=== PATIENT | male | born 1965 | race Hispanic/Latino ===

== ENCOUNTER 2018-05-21 18:28 | Emergency (ER) | payer SELFPAY ==
[~2018-05-21] VITALS: Ht 175.3 cm; Wt 97.3 kg
[~2018-05-21 18:28] MED LIST: CEPHALEXIN500 MG OR
[2018-05-21] MEDS ORDERED: LISINOP/HCTZ1 TA2 PO (18:45)
[2018-05-21 19:14] LABS: HEMATOCRIT 48.7 % (39.0-50.0); HEMOGLOBIN 16.9 g/dl (14.0-18.0); IMMATURE GRANULOCYTES 0.4 % (0.0-5.0); MEAN CELL VOLUME 87.7 fL CALC (80.0-100.0); MEAN CORPUSCULAR HGB 30.5 pG CALC (26.0-32.0); MEAN CORPUSCULAR HGB CONC 34.7 g/L CALC (32.0-36.0); NEUT# 9.8 thou/uL (1.82-7.42); RED BLOOD COUNT 5.55 mill/uL (4.70-6.10); RED CELL DISTRI WIDTH 12.9 % (11.5-15.5)
[2018-05-21 19:23] LABS: URINE BILIRUBIN - DIPSTICK NEGATIVE (NEGATIVE); URINE BLOOD DIPSTICK NEGATIVE (NEGATIVE); URINE COLOR YELLOW; URINE GLUCOSE - DIPSTICK NEGATIVE (NEGATIVE); URINE KETONE NEGATIVE (NEGATIVE); URINE LEUK ESTERASE NEGATIVE (NEGATIVE); URINE NITRITE - DIPSTICK NEGATIVE (Negative); URINE PH 6.5 (4.5-8.0); URINE PROTEIN - DIPSTICK NEGATIVE (NEG-TRACE); URINE SPECIFIC GRAVITY <=1.005; URINE UROBILINOGEN - DIPSTICK 0.2 E.U./dL (0.2)
[2018-05-21 19:25] LABS: BARBITURATES NEGATIVE (NEGATIVE); COCAINE NEGATIVE (NEGATIVE); METHADONE NEGATIVE (NEGATIVE); OXCYCODONE NEGATIVE (NEGATIVE); TETRAHYDROCANNABIONOL NEGATIVE (NEGATIVE); TRICYLIC ANTIDEPRESSANTS NEGATIVE (NEGATIVE)
[2018-05-21 20:10] LABS: ALBUMIN 4.7 g/dL (3.2-5.0); ALKALINE PHOSPHATASE 110 u/l (38-126); ANION GAP 17 (6-22 (CALC)); BILIRUBIN, TOTAL 0.8 mg/dL (0.0-1.4); BUN 12 mg/dL (9-20); BUN/CREATININE RATIO 14 (12-20 (CALC)); CARBON DIOXIDE 24 mmol/l (22-30); CHLORIDE 98 mmol/l (95-108); CREATININE 0.9 mg/dL (0.7-1.3); GFR > 60 ML/MIN (>=60 (CALC)); GFR FOR AFR.AMER. > 60 ML/MIN (>=60 (CALC)); POTASSIUM 3.5 mmol/l (3.5-5.1); SGOT/AST 39 u/l (17-59); SODIUM 135 mmol/l (137-146); TOTAL PROTEIN 8.6 g/dL (6.3-8.2)
[2018-05-21 20:22] LABS: MYOGLOBIN 43 ng/mL (0 - 121)
[2018-05-21 21:05] VITALS: BP 138/79
== END 2018-05-21 21:04 | disposition home or self-care (01) | DRG 866 ==
LOC: ED 18:28
DX: B34.9 Viral infection, unspecified (principal); I10 Essential (primary) hypertension

== ENCOUNTER 2018-05-25 17:11 | Observation (INO) | payer SELFPAY ==
[~2018-05-25] VITALS: Ht 175.3 cm; Wt 95.8 kg
[~2018-05-25 17:11] MED LIST changes: +LISINOP/HCTZ1 TA2 PO
[2018-05-25] MEDS ORDERED: RANITIDINE150 M1 PO (17:27)
[2018-05-25 17:46] LABS: HEMATOCRIT 51.6 % (39.0-50.0); HEMOGLOBIN 17.9 g/dl (14.0-18.0); IMMATURE GRANULOCYTES 0.3 % (0.0-5.0); MEAN CELL VOLUME 88.4 fL CALC (80.0-100.0); MEAN CORPUSCULAR HGB 30.7 pG CALC (26.0-32.0); MEAN CORPUSCULAR HGB CONC 34.7 g/L CALC (32.0-36.0); NEUT# 10.94 thou/uL (1.82-7.42); RED BLOOD COUNT 5.84 mill/uL (4.70-6.10); RED CELL DISTRI WIDTH 12.1 % (11.5-15.5)
[2018-05-25 18:20] LABS: ALBUMIN 5.1 g/dL (3.2-5.0); ALKALINE PHOSPHATASE 111 u/l (38-126); ANION GAP 21 (6-22 (CALC)); BUN 14 mg/dL (9-20); BUN/CREATININE RATIO 15 (12-20 (CALC)); CARBON DIOXIDE 23 mmol/l (22-30); CHLORIDE 97 mmol/l (95-108); CREATININE 0.9 mg/dL (0.7-1.3); GFR > 60 ML/MIN (>=60 (CALC)); GFR FOR AFR.AMER. > 60 ML/MIN (>=60 (CALC)); POTASSIUM 4.2 mmol/l (3.5-5.1); SGOT/AST 45 u/l (17-59); SODIUM 136 mmol/l (137-146); TOTAL PROTEIN 9.1 g/dL (6.3-8.2)
[2018-05-25 18:51] LABS: TSH, 3RD GENERATION 2.02 uIU/mL (0.47 - 4.68)
[2018-05-25 21:20] VITALS: BP 129/85
[2018-05-25 23:38] VITALS: BP 125/69
[2018-05-26 04:05] VITALS: BP 118/78
[2018-05-26 05:03] LABS: HEMATOCRIT 45.8 % (39.0-50.0); IMMATURE GRANULOCYTES 0.2 % (0.0-5.0); MEAN CELL VOLUME 88.4 fL CALC (80.0-100.0); MEAN CORPUSCULAR HGB 30.3 pG CALC (26.0-32.0); MEAN CORPUSCULAR HGB CONC 34.3 g/L CALC (32.0-36.0); NEUT# 7.38 thou/uL (1.82-7.42); RED BLOOD COUNT 5.18 mill/uL (4.70-6.10); RED CELL DISTRI WIDTH 12.1 % (11.5-15.5)
[2018-05-26 05:08] LABS: HEMOGLOBIN 15.7 g/dl (14.0-18.0)
[2018-05-26 06:12] LABS: ALKALINE PHOSPHATASE 77 u/l (38-126); ANION GAP 16 (6-22 (CALC)); BILIRUBIN, TOTAL 1.1 mg/dL (0.0-1.4); BUN 11 mg/dL (9-20); BUN/CREATININE RATIO 12 (12-20 (CALC)); CARBON DIOXIDE 23 mmol/l (22-30); CHLORIDE 104 mmol/l (95-108); CREATININE 0.9 mg/dL (0.7-1.3); GFR > 60 ML/MIN (>=60 (CALC)); GFR FOR AFR.AMER. > 60 ML/MIN (>=60 (CALC)); SGOT/AST 27 u/l (17-59); SODIUM 138 mmol/l (137-146); TOTAL PROTEIN 6.9 g/dL (6.3-8.2)
[2018-05-26 08:17] VITALS: BP 124/85
[2018-05-26 09:07] LABS: CHOLESTEROL HDL RATIO 3.3 (<4.4 (CALC))
[2018-05-26 10:41] LABS: URINE BILIRUBIN - DIPSTICK NEGATIVE (NEGATIVE); URINE BLOOD DIPSTICK NEGATIVE (NEGATIVE); URINE COLOR YELLOW; URINE GLUCOSE - DIPSTICK NEGATIVE (NEGATIVE); URINE KETONE NEGATIVE (NEGATIVE); URINE LEUK ESTERASE NEGATIVE (NEGATIVE); URINE NITRITE - DIPSTICK NEGATIVE (Negative); URINE PROTEIN - DIPSTICK NEGATIVE (NEG-TRACE); URINE SPECIFIC GRAVITY <=1.005
[2018-05-26 11:45] VITALS: BP 131/80
[2018-05-26 11:50] VITALS: BP 137/88
[2018-05-26 11:55] VITALS: BP 122/86
[2018-05-26 12:59] VITALS: BP 151/85
[2018-05-26] MEDS ORDERED: COREG3.125 MG PO (14:45)
[2018-05-26] MEDS ORDERED: LISINOPRIL10 M1 PO (14:45)
== END 2018-05-26 15:54 | disposition home or self-care (01) | DRG 312 ==
LOC: ED 17:11 → ED-I 19:56 → ED 20:11 → MS2 20:12
PROVIDERS: Emergency Medicine; Nurse Practitioner Family; ADMIT Internal Medicine Nephrology; ATTEND Internal Medicine Nephrology
DX: R55 Syncope and collapse (principal); E86.0 Dehydration; R94.31 Abnormal electrocardiogram [ECG] [EKG]; K21.9 Gastro-esophageal reflux disease without esophagitis; I10 Essential (primary) hypertension; Z82.49 Family history of ischemic heart disease and other diseases of the circulatory system
CPT/HCPCS: G0378; Q9967

== ENCOUNTER 2018-06-05 19:21 | Emergency (ER) | payer SELFPAY ==
[~2018-06-05] VITALS: Ht 175.3 cm; Wt 110.0 kg
[~2018-06-05 19:21] MED LIST changes: +COREG3.125 MG PO; +LISINOPRIL10 M1 PO; +RANITIDINE150 M1 PO
[2018-06-05] MEDS ORDERED: OMEPRAZOLE10 MG PO (19:53)
[2018-06-05] MEDS ORDERED: BIAXIN500 MG PO (19:53)
[2018-06-05] MEDS ORDERED: AMOXICILLIN500 MG PO (19:55)
[2018-06-05 20:10] LABS: HEMOGLOBIN 16.1 g/dl (14.0-18.0); IMMATURE GRANULOCYTES 0.3 % (0.0-5.0); MEAN CELL VOLUME 86.9 fL CALC (80.0-100.0); MEAN CORPUSCULAR HGB 31.1 pG CALC (26.0-32.0); MEAN CORPUSCULAR HGB CONC 35.8 g/L CALC (32.0-36.0); NEUT# 9.44 thou/uL (1.82-7.42); RED BLOOD COUNT 5.18 mill/uL (4.70-6.10)
[2018-06-05 20:26] LABS: ALBUMIN 4.7 g/dL (3.2-5.0); ALKALINE PHOSPHATASE 91 u/l (38-126); ANION GAP 18 (6-22 (CALC)); BILIRUBIN, TOTAL 0.8 mg/dL (0.0-1.4); BUN 8 mg/dL (9-20); BUN/CREATININE RATIO 11 (12-20 (CALC)); CARBON DIOXIDE 17 mmol/l (22-30); CHLORIDE 107 mmol/l (95-108); CREATININE 0.8 mg/dL (0.7-1.3); GFR > 60 ML/MIN (>=60 (CALC)); GFR FOR AFR.AMER. > 60 ML/MIN (>=60 (CALC)); POTASSIUM 3.5 mmol/l (3.5-5.1); SGOT/AST 30 u/l (17-59); SODIUM 138 mmol/l (137-146); TOTAL PROTEIN 7.8 g/dL (6.3-8.2)
[2018-06-05 20:45] LABS: URINE BILIRUBIN - DIPSTICK NEGATIVE (NEGATIVE); URINE BLOOD DIPSTICK NEGATIVE (NEGATIVE); URINE COLOR YELLOW; URINE GLUCOSE - DIPSTICK NEGATIVE (NEGATIVE); URINE KETONE TRACE mg/dL (NEGATIVE); URINE LEUK ESTERASE NEGATIVE (NEGATIVE); URINE NITRITE - DIPSTICK NEGATIVE (Negative); URINE PROTEIN - DIPSTICK NEGATIVE (NEG-TRACE); URINE UROBILINOGEN - DIPSTICK 0.2 E.U./dL (0.2)
[2018-06-05 20:47] LABS: BARBITURATES NEGATIVE (NEGATIVE); COCAINE NEGATIVE (NEGATIVE); METHADONE NEGATIVE (NEGATIVE); OXCYCODONE NEGATIVE (NEGATIVE); TETRAHYDROCANNABIONOL NEGATIVE (NEGATIVE); TRICYLIC ANTIDEPRESSANTS NEGATIVE (NEGATIVE)
[2018-06-05] MEDS ORDERED: ANTIVERT PO (21:23)
[2018-06-05] MEDS ORDERED: ATIVAN0.5 MG PO (21:23)
[2018-06-05 22:00] VITALS: BP 130/64
[2018-06-13] MEDS ORDERED: CLARITHROMYC500 M1 PO (09:16)
[2018-06-13] MEDS ORDERED: AMOXICILLIN500 MG PO (09:16)
[2018-06-13] MEDS ORDERED: CARVEDILOL3.125 MG PO (09:16)
[2018-06-13] MEDS ORDERED: OMEPRAZOLE20 M1 PO (09:17)
[2018-06-13] MEDS ORDERED: LORAZEPAM0.5 MG PO (09:17)
[2018-06-13] MEDS ORDERED: LISINOPRIL10 MG PO (09:17)
== END 2018-06-05 21:30 | disposition home or self-care (01) | DRG 641 ==
LOC: ED 19:21
PROVIDERS: Emergency Medicine
DX: E86.0 Dehydration (principal); F41.9 Anxiety disorder, unspecified; R06.02 Shortness of breath; R42 Dizziness and giddiness

== ENCOUNTER 2018-06-11 21:58 | Observation (INO) | payer SELFPAY ==
[~2018-06-11] VITALS: Ht 175.3 cm; Wt 92.0 kg
[~2018-06-11 21:58] MED LIST changes: +AMOXICILLIN500 MG PO; +ANTIVERT PO; +ATIVAN0.5 MG PO; +BIAXIN500 MG PO; +OMEPRAZOLE10 MG PO
[2018-06-11 22:50] LABS: HEMATOCRIT 45.9 % (39.0-50.0); HEMOGLOBIN 15.8 g/dl (14.0-18.0); IMMATURE GRANULOCYTES 0.3 % (0.0-5.0); MEAN CELL VOLUME 88.3 fL CALC (80.0-100.0); MEAN CORPUSCULAR HGB 30.4 pG CALC (26.0-32.0); MEAN CORPUSCULAR HGB CONC 34.4 g/L CALC (32.0-36.0); NEUT# 8.08 thou/uL (1.82-7.42); RED BLOOD COUNT 5.2 mill/uL (4.70-6.10); RED CELL DISTRI WIDTH 12.2 % (11.5-15.5)
[2018-06-11 23:16] LABS: ALBUMIN 4.3 g/dL (3.2-5.0); ALKALINE PHOSPHATASE 78 u/l (38-126); ANION GAP 16 (6-22 (CALC)); BILIRUBIN, TOTAL 0.9 mg/dL (0.0-1.4); BUN 8 mg/dL (9-20); BUN/CREATININE RATIO 10 (12-20 (CALC)); CARBON DIOXIDE 20 mmol/l (22-30); CHLORIDE 106 mmol/l (95-108); CREATININE 0.8 mg/dL (0.7-1.3); GFR > 60 ML/MIN (>=60 (CALC)); GFR FOR AFR.AMER. > 60 ML/MIN (>=60 (CALC)); POTASSIUM 3.8 mmol/l (3.5-5.1); SGOT/AST 40 u/l (17-59); SODIUM 139 mmol/l (137-146); TOTAL PROTEIN 7.5 g/dL (6.3-8.2)
[2018-06-11 23:28] LABS: MYOGLOBIN 31 ng/mL (0 - 121)
[2018-06-12] VITALS (7 sets, daily range): BP systolic 126–164; BP diastolic 84–94
[2018-06-13] MEDS ORDERED: CARVEDILOL3.125 MG PO (09:16)
[2018-06-13] MEDS ORDERED: AMOXICILLIN500 MG PO (09:16)
[2018-06-13] MEDS ORDERED: CLARITHROMYC500 M1 PO (09:16)
[2018-06-13] MEDS ORDERED: OMEPRAZOLE20 M1 PO (09:17)
[2018-06-13] MEDS ORDERED: LISINOPRIL10 MG PO (09:17)
[2018-06-13] MEDS ORDERED: LORAZEPAM0.5 MG PO (09:17)
== END 2018-06-12 14:35 | disposition home or self-care (01) | DRG 313 ==
LOC: ED 21:58 → ED-I 23:25 → ED 23:58 → MS2 23:59
PROVIDERS: Emergency Medicine; ADMIT Internal Medicine; ATTEND Internal Medicine
DX: R07.89 Other chest pain (principal); I10 Essential (primary) hypertension
CPT/HCPCS: G0378; J2060

== ENCOUNTER 2018-06-13 20:19 | Emergency (ER) | payer SELFPAY ==
[~2018-06-13] VITALS: Ht 175.3 cm; Wt 92.7 kg
[~2018-06-13 20:19] MED LIST changes: +CARVEDILOL3.125 MG PO; +CLARITHROMYC500 M1 PO; +LISINOPRIL10 MG PO; +LORAZEPAM0.5 MG PO; +OMEPRAZOLE20 M1 PO
[2018-06-13 21:33] LABS: HEMOGLOBIN 15.7 g/dl (14.0-18.0); IMMATURE GRANULOCYTES 0.2 % (0.0-5.0); MEAN CELL VOLUME 87.2 fL CALC (80.0-100.0); MEAN CORPUSCULAR HGB 30.4 pG CALC (26.0-32.0); MEAN CORPUSCULAR HGB CONC 34.9 g/L CALC (32.0-36.0); NEUT# 5.95 thou/uL (1.82-7.42); RED BLOOD COUNT 5.16 mill/uL (4.70-6.10); RED CELL DISTRI WIDTH 12.1 % (11.5-15.5)
[2018-06-13 21:46] LABS: ALBUMIN 4.4 g/dL (3.2-5.0); ALKALINE PHOSPHATASE 78 u/l (38-126); ANION GAP 15 (6-22 (CALC)); BILIRUBIN, TOTAL 0.7 mg/dL (0.0-1.4); BUN 7 mg/dL (9-20); BUN/CREATININE RATIO 10 (12-20 (CALC)); CARBON DIOXIDE 21 mmol/l (22-30); CHLORIDE 106 mmol/l (95-108); CREATININE 0.8 mg/dL (0.7-1.3); GFR > 60 ML/MIN (>=60 (CALC)); GFR FOR AFR.AMER. > 60 ML/MIN (>=60 (CALC)); POTASSIUM 3.4 mmol/l (3.5-5.1); SGOT/AST 34 u/l (17-59); SODIUM 138 mmol/l (137-146); TOTAL PROTEIN 7.7 g/dL (6.3-8.2)
[2018-06-13 21:55] LABS: D-DIMER 0.21 mg/L (0.19-0.60); PROTHROMBIN TIME 10.8 SECONDS (9.0-12.5)
[2018-06-13 21:58] LABS: MYOGLOBIN 25 ng/mL (0 - 121)
[2018-06-13 22:37] VITALS: BP 152/74
== END 2018-06-13 22:34 | disposition home or self-care (01) | DRG 204 ==
LOC: ED 20:19
PROVIDERS: Family Medicine
DX: R06.02 Shortness of breath (principal); I10 Essential (primary) hypertension
CPT/HCPCS: J2060

== ENCOUNTER 2018-06-19 19:36 | Emergency (ER) | payer SELFPAY ==
[~2018-06-19] VITALS: Ht 175.3 cm; Wt 90.0 kg
[2018-06-19 20:46] LABS: HEMATOCRIT 48.4 % (39.0-50.0); HEMOGLOBIN 16.1 g/dl (14.0-18.0); IMMATURE GRANULOCYTES 0.4 % (0.0-5.0); MEAN CORPUSCULAR HGB 30.9 pG CALC (26.0-32.0); MEAN CORPUSCULAR HGB CONC 33.3 g/L CALC (32.0-36.0); NEUT# 4.73 thou/uL (1.82-7.42); RED BLOOD COUNT 5.21 mill/uL (4.70-6.10); RED CELL DISTRI WIDTH 12.3 % (11.5-15.5)
[2018-06-19 20:48] LABS: MEAN CELL VOLUME 92.9 fL CALC (80.0-100.0)
[2018-06-19 21:03] LABS: ALBUMIN 4.5 g/dL (3.2-5.0); ALKALINE PHOSPHATASE 83 u/l (38-126); AMYLASE 108 u/l (30-110); ANION GAP 18 (6-22 (CALC)); BILIRUBIN, TOTAL 0.9 mg/dL (0.0-1.4); BUN 10 mg/dL (9-20); BUN/CREATININE RATIO 10 (12-20 (CALC)); CARBON DIOXIDE 17 mmol/l (22-30); CHLORIDE 108 mmol/l (95-108); GFR > 60 ML/MIN (>=60 (CALC)); GFR FOR AFR.AMER. > 60 ML/MIN (>=60 (CALC)); LIPASE 111 u/l (23-300); POTASSIUM 3.4 mmol/l (3.5-5.1); SGOT/AST 36 u/l (17-59); SODIUM 140 mmol/l (137-146)
[2018-06-19 21:15] LABS: MYOGLOBIN 32 ng/mL (0 - 121)
[2018-06-19] MEDS ORDERED: PREVPAC PO (22:04)
[2018-06-19 23:45] VITALS: BP 129/81
[2018-06-22] MEDS ORDERED: LISINOPRIL10 MG PO ×2 (08:40→13:24)
== END 2018-06-19 23:45 | disposition home or self-care (01) | DRG 392 ==
LOC: ED 19:36
PROVIDERS: Emergency Medicine
DX: R10.13 Epigastric pain (principal); A04.8 Other specified bacterial intestinal infections; I10 Essential (primary) hypertension
CPT/HCPCS: J2060; S0164

== ENCOUNTER 2018-06-22 13:12 | Emergency (ER) | payer SELFPAY ==
[~2018-06-22] VITALS: Ht 175.3 cm; Wt 89.1 kg
[~2018-06-22 13:12] MED LIST changes: +PREVPAC PO
[2018-06-22] MEDS ORDERED: LISINOPRIL10 MG PO (13:24)
[2018-06-22 14:26] LABS: HEMATOCRIT 47.2 % (39.0-50.0); IMMATURE GRANULOCYTES 0.3 % (0.0-5.0); MEAN CELL VOLUME 89.9 fL CALC (80.0-100.0); MEAN CORPUSCULAR HGB 30.5 pG CALC (26.0-32.0); MEAN CORPUSCULAR HGB CONC 33.9 g/L CALC (32.0-36.0); NEUT# 4.93 thou/uL (1.82-7.42); RED BLOOD COUNT 5.25 mill/uL (4.70-6.10); RED CELL DISTRI WIDTH 12.6 % (11.5-15.5)
[2018-06-22 14:51] LABS: BUN 7 mg/dL (9-20); BUN/CREATININE RATIO 7 (12-20 (CALC)); CHLORIDE 107 mmol/l (95-108); CREATININE 0.9 mg/dL (0.7-1.3); GFR > 60 ML/MIN (>=60 (CALC)); GFR FOR AFR.AMER. > 60 ML/MIN (>=60 (CALC)); SODIUM 142 mmol/l (137-146)
[2018-06-22 14:52] LABS: ANION GAP 18 (6-22 (CALC)); CARBON DIOXIDE 22 mmol/l (22-30); POTASSIUM 4.6 mmol/l (3.5-5.1)
[2018-06-22 15:16] VITALS: BP 129/86
[2018-06-26] MEDS ORDERED: MYLANT3 PO (09:42)
[2018-06-26] MEDS ORDERED: LANSOPRAZOLE30 MG PO (10:56)
== END 2018-06-22 15:10 | disposition home or self-care (01) | DRG 313 ==
LOC: ED 13:12
PROVIDERS: Family Medicine
DX: R07.9 Chest pain, unspecified (principal); I10 Essential (primary) hypertension

== ENCOUNTER 2018-07-10 08:41 | Day surgery (SDC) | payer SELFPAY ==
[~2018-07-10] VITALS: Ht 175.3 cm; Wt 88.9 kg
[~2018-07-10 08:41] MED LIST changes: +LANSOPRAZOLE30 MG PO; +MYLANT3 PO
[2018-07-10] MEDS ORDERED: PERCOCET 5/325M1 TAB PO (13:07)
[2018-07-10 14:07] VITALS: BP 112/68
== END 2018-07-10 13:55 | disposition home or self-care (01) | DRG 419 ==
LOC: ORM 08:41
PROVIDERS: ATTEND Surgery
PROC: 0FT44ZZ Resection of Gallbladder, Percutaneous Endoscopic Approach (ICD-10-PCS; principal; 2018-07-10)
DX: K81.1 Chronic cholecystitis (principal); I10 Essential (primary) hypertension
CPT/HCPCS: J0131; J0461; J2710; Q9967

== ENCOUNTER 2018-07-11 02:09 | Emergency (ER) | payer SELFPAY ==
[~2018-07-11] VITALS: Ht 175.3 cm; Wt 87.0 kg
[~2018-07-11 02:09] MED LIST changes: +PERCOCET 5/325M1 TAB PO
[2018-07-11 02:53] LABS: HEMATOCRIT 41.8 % (39.0-50.0); HEMOGLOBIN 14.8 g/dl (14.0-18.0); IMMATURE GRANULOCYTES 0.5 % (0.0-5.0); MEAN CELL VOLUME 87.1 fL CALC (80.0-100.0); MEAN CORPUSCULAR HGB 30.8 pG CALC (26.0-32.0); MEAN CORPUSCULAR HGB CONC 35.4 g/L CALC (32.0-36.0); NEUT# 7.93 thou/uL (1.82-7.42); RED BLOOD COUNT 4.8 mill/uL (4.70-6.10); RED CELL DISTRI WIDTH 12.6 % (11.5-15.5)
[2018-07-11 03:10] LABS: ALBUMIN 4.5 g/dL (3.2-5.0); ALKALINE PHOSPHATASE 83 u/l (38-126); BUN 9 mg/dL (9-20); BUN/CREATININE RATIO 8 (12-20 (CALC)); CARBON DIOXIDE 19 mmol/l (22-30); CHLORIDE 107 mmol/l (95-108); GFR > 60 ML/MIN (>=60 (CALC)); GFR FOR AFR.AMER. > 60 ML/MIN (>=60 (CALC)); SODIUM 138 mmol/l (137-146); TOTAL PROTEIN 7.5 g/dL (6.3-8.2)
[2018-07-11 03:13] LABS: ANION GAP 15 (6-22 (CALC))
[2018-07-11 03:14] LABS: BILIRUBIN, TOTAL 1.7 mg/dL (0.0-1.4); POTASSIUM 3.2 mmol/l (3.5-5.1); SGOT/AST 81 u/l (17-59)
[2018-07-11 03:21] LABS: MYOGLOBIN 82 ng/mL (0 - 121)
[2018-07-11 05:38] VITALS: BP 111/61
[2018-07-12] MEDS ORDERED: TYLENOL 500MG TAB PO (16:06)
[2018-07-12] MEDS ORDERED: XANAX XR1 MG PO (17:16)
== END 2018-07-11 05:40 | disposition home or self-care (01) | DRG 556 ==
LOC: ED 02:09
PROVIDERS: Emergency Medicine
DX: M79.10 Myalgia, unspecified site (principal); T40.2X5A Adverse effect of other opioids, initial encounter; I10 Essential (primary) hypertension

== ENCOUNTER 2018-07-12 14:38 | Emergency (ER) | payer SELFPAY ==
[~2018-07-12] VITALS: Ht 175.3 cm; Wt 85.5 kg
[2018-07-12 15:56] LABS: HEMATOCRIT 42.8 % (39.0-50.0); HEMOGLOBIN 14.8 g/dl (14.0-18.0); IMMATURE GRANULOCYTES 0.3 % (0.0-5.0); MEAN CELL VOLUME 88.6 fL CALC (80.0-100.0); MEAN CORPUSCULAR HGB 30.6 pG CALC (26.0-32.0); MEAN CORPUSCULAR HGB CONC 34.6 g/L CALC (32.0-36.0); NEUT# 4.77 thou/uL (1.82-7.42); RED BLOOD COUNT 4.83 mill/uL (4.70-6.10); RED CELL DISTRI WIDTH 12.9 % (11.5-15.5)
[2018-07-12] MEDS ORDERED: TYLENOL 500MG TAB PO (16:06)
[2018-07-12 16:40] LABS: ALBUMIN 4.3 g/dL (3.2-5.0); ALKALINE PHOSPHATASE 71 u/l (38-126); BUN 8 mg/dL (9-20); BUN/CREATININE RATIO 9 (12-20 (CALC)); CARBON DIOXIDE 19 mmol/l (22-30); CHLORIDE 107 mmol/l (95-108); CREATININE 0.9 mg/dL (0.7-1.3); GFR > 60 ML/MIN (>=60 (CALC)); GFR FOR AFR.AMER. > 60 ML/MIN (>=60 (CALC)); SGOT/AST 47 u/l (17-59); SODIUM 138 mmol/l (137-146); TOTAL PROTEIN 7.3 g/dL (6.3-8.2)
[2018-07-12 16:42] LABS: ANION GAP 16 (6-22 (CALC)); POTASSIUM 3.9 mmol/l (3.5-5.1)
[2018-07-12] MEDS ORDERED: XANAX XR1 MG PO (17:16)
[2018-07-12 17:39] VITALS: BP 126/73
== END 2018-07-12 17:38 | disposition home or self-care (01) | DRG 204 ==
LOC: ED 14:38
PROVIDERS: Emergency Medicine
DX: R06.02 Shortness of breath (principal); R06.4 Hyperventilation; I10 Essential (primary) hypertension

== ENCOUNTER 2018-07-22 20:38 | Emergency (ER) | payer SELFPAY ==
[~2018-07-22] VITALS: Ht 175.3 cm; Wt 88.0 kg
[~2018-07-22 20:38] MED LIST changes: +TYLENOL 500MG TAB PO; +XANAX XR1 MG PO
[2018-07-22 21:27] LABS: HEMOGLOBIN 14.7 g/dl (14.0-18.0); IMMATURE GRANULOCYTES 0.2 % (0.0-5.0); MEAN CELL VOLUME 88.1 fL CALC (80.0-100.0); MEAN CORPUSCULAR HGB 30.8 pG CALC (26.0-32.0); NEUT# 4.36 thou/uL (1.82-7.42); RED BLOOD COUNT 4.77 mill/uL (4.70-6.10); RED CELL DISTRI WIDTH 13.2 % (11.5-15.5)
[2018-07-22 21:55] LABS: MYOGLOBIN 23 ng/mL (0 - 121)
[2018-07-22 22:14] LABS: ALBUMIN 4.3 g/dL (3.2-5.0); ALKALINE PHOSPHATASE 103 u/l (38-126); ANION GAP 18 (6-22 (CALC)); BILIRUBIN, TOTAL 0.7 mg/dL (0.0-1.4); BUN 12 mg/dL (9-20); BUN/CREATININE RATIO 11 (12-20 (CALC)); CARBON DIOXIDE 18 mmol/l (22-30); CHLORIDE 108 mmol/l (95-108); CREATININE 1.1 mg/dL (0.7-1.3); GFR > 60 ML/MIN (>=60 (CALC)); GFR FOR AFR.AMER. > 60 ML/MIN (>=60 (CALC)); POTASSIUM 4.2 mmol/l (3.5-5.1); SGOT/AST 32 u/l (17-59); SODIUM 139 mmol/l (137-146); TOTAL PROTEIN 7.6 g/dL (6.3-8.2)
[2018-07-22 22:33] VITALS: BP 102/61
== END 2018-07-22 22:33 | disposition home or self-care (01) | DRG 149 ==
LOC: ED 20:38
PROVIDERS: Emergency Medicine
DX: R42 Dizziness and giddiness (principal); R06.02 Shortness of breath; R51 Headache; M25.512 Pain in left shoulder; I10 Essential (primary) hypertension

== ENCOUNTER 2018-07-24 22:16 | Emergency (ER) | payer SELFPAY ==
[~2018-07-24] VITALS: Ht 175.3 cm; Wt 84.5 kg
[2018-07-24 23:19] LABS: HEMATOCRIT 43.5 % (39.0-50.0); HEMOGLOBIN 15.3 g/dl (14.0-18.0); IMMATURE GRANULOCYTES 0.4 % (0.0-5.0); MEAN CELL VOLUME 86.8 fL CALC (80.0-100.0); MEAN CORPUSCULAR HGB 30.5 pG CALC (26.0-32.0); MEAN CORPUSCULAR HGB CONC 35.2 g/L CALC (32.0-36.0); NEUT# 5.67 thou/uL (1.82-7.42); RED BLOOD COUNT 5.01 mill/uL (4.70-6.10); RED CELL DISTRI WIDTH 13.2 % (11.5-15.5)
[2018-07-24 23:36] LABS: ALBUMIN 4.6 g/dL (3.2-5.0); ALKALINE PHOSPHATASE 95 u/l (38-126); AMYLASE 96 u/l (30-110); BUN 9 mg/dL (9-20); BUN/CREATININE RATIO 9 (12-20 (CALC)); CARBON DIOXIDE 16 mmol/l (22-30); CHLORIDE 109 mmol/l (95-108); GFR > 60 ML/MIN (>=60 (CALC)); GFR FOR AFR.AMER. > 60 ML/MIN (>=60 (CALC)); LIPASE 202 u/l (23-300); SGOT/AST 29 u/l (17-59); SODIUM 141 mmol/l (137-146); TOTAL PROTEIN 7.9 g/dL (6.3-8.2)
[2018-07-24 23:38] LABS: ANION GAP 19 (6-22 (CALC)); BILIRUBIN, TOTAL 1.3 mg/dL (0.0-1.4); POTASSIUM 3.3 mmol/l (3.5-5.1)
[2018-07-25 00:20] VITALS: BP 117/84
== END 2018-07-25 00:22 | disposition home or self-care (01) | DRG 204 ==
LOC: ED 22:16
PROVIDERS: Emergency Medicine
DX: R06.4 Hyperventilation (principal); F41.9 Anxiety disorder, unspecified; I10 Essential (primary) hypertension
CPT/HCPCS: J2060

== ENCOUNTER 2018-08-14 06:51 | Day surgery (SDC) | payer SELFPAY ==
[~2018-08-14] VITALS: Ht 175.3 cm; Wt 81.6 kg
[2018-08-14] MEDS ORDERED: ESCITALOPRAM OX10 MG PO (08:03)
[2018-08-14 08:43] VITALS: BP 109/65
== END 2018-08-14 08:55 | disposition home or self-care (01) | DRG 392 ==
LOC: ORM 06:51
PROVIDERS: ATTEND Surgery
PROC: 0DJ08ZZ Inspection of Upper Intestinal Tract, Via Natural or Artificial Opening Endoscopic (ICD-10-PCS; principal; 2018-08-14)
DX: K29.60 Other gastritis without bleeding (principal); K21.0 Gastro-esophageal reflux disease with esophagitis; Z79.899 Other long term (current) drug therapy

== ENCOUNTER 2019-08-11 15:08 | Emergency (ER) | payer SELFPAY ==
[~2019-08-11] VITALS: Ht 175.3 cm; Wt 100.0 kg
[~2019-08-11 15:08] MED LIST changes: +ESCITALOPRAM OX10 MG PO
[2019-08-11 15:47] LABS: HEMOGLOBIN 15.9 g/dl (14.0-18.0); IMMATURE GRANULOCYTES 0.4 % (0.0-5.0); MEAN CELL VOLUME 88.8 fL CALC (80.0-100.0); MEAN CORPUSCULAR HGB 30.7 pG CALC (26.0-32.0); MEAN CORPUSCULAR HGB CONC 34.6 g/dL CAL (32.0-36.0); NEUT# 3.76 thou/uL (1.82-7.42); RED BLOOD COUNT 5.18 mill/uL (4.70-6.10); RED CELL DISTRI WIDTH 12.7 % (11.5-15.5)
[2019-08-11 16:05] LABS: ALBUMIN 4.3 g/dL (3.2-5.0); ALKALINE PHOSPHATASE 75 u/l (38-126); BILIRUBIN, TOTAL 0.9 mg/dL (0.0-1.4); BUN 13 mg/dL (9-20); BUN/CREATININE RATIO 17 (12-20 (CALC)); CARBON DIOXIDE 22 mmol/l (22-30); CHLORIDE 98 mmol/l (95-108); CREATININE 0.8 mg/dL (0.7-1.3); GFR > 60 ML/MIN (>=60 (CALC)); GFR FOR AFR.AMER. > 60 ML/MIN (>=60 (CALC)); POTASSIUM 4.3 mmol/l (3.5-5.1); TOTAL PROTEIN 7.9 g/dL (6.3-8.2)
[2019-08-11 16:11] LABS: ANION GAP 14 (6-22 (CALC)); SGOT/AST 70 u/l (17-59); SODIUM 130 mmol/l (137-146)
[2019-08-11] MEDS ORDERED: PENICILLN VK500 M1 PO (16:31)
[2019-08-11 16:44] LABS: URINE BILIRUBIN - DIPSTICK NEGATIVE (NEGATIVE); URINE BLOOD DIPSTICK NEGATIVE (NEGATIVE); URINE COLOR YELLOW; URINE GLUCOSE - DIPSTICK NEGATIVE (NEGATIVE); URINE KETONE NEGATIVE (NEGATIVE); URINE LEUK ESTERASE NEGATIVE (NEGATIVE); URINE NITRITE - DIPSTICK NEGATIVE (Negative); URINE PROTEIN - DIPSTICK 30 mg/dL (NEG-TRACE)
[2019-08-11 16:48] LABS: URINE SQUAMOUS EPITHELIAL CELL FEW EPI/hpf (0-FEW)
[2019-08-11 16:52] VITALS: BP 126/79
== END 2019-08-11 16:56 | disposition home or self-care (01) | DRG 153 ==
LOC: ED 15:08
PROVIDERS: Emergency Medicine
DX: J02.0 Streptococcal pharyngitis (principal); I10 Essential (primary) hypertension

== ENCOUNTER 2019-08-15 11:55 | Observation (INO) | payer SELFPAY ==
[~2019-08-15] VITALS: Ht 175.3 cm; Wt 101.1 kg
[~2019-08-15 11:55] MED LIST changes: +PENICILLN VK500 M1 PO
--- NOTE | 2019-08-15 12:00 | NUR ---
PT TO RM 14 VIA EMS STRETCHER.
--- NOTE | 2019-08-15 12:55 | NUR ---
ABLE TO OBTAIN IV ACCESS, A GLEOCKLER AT BEDSIDE ATTEMPTING, MD AWARE OF NO ACCESS, DIAPHORESIS AND HYPOTENSION.
--- NOTE | 2019-08-15 13:47 | NUR ---
PT AWARE OF NEED FRO ORTHOSTATIC B/P EDUCATED REGARDING PROCESS ADN OBTAINING THE, VERBALIZES UNDERSTANDING AND COMPLIANCE
--- NOTE | 2019-08-15 14:00 | NUR ---
ORTHOSTATIC BP PERFORMED, THEY ARE NEGATIVE AND MD AWARE. REMAINS AT BEDSIDE
--- NOTE | 2019-08-15 15:05 | NUR ---
PT RESTING IVF IFNUSING SECOND LITER TO START WHEN FIRST COMPLETE, CALL FREED WITHIN REACH
[2019-08-15 15:11] LABS: HEMATOCRIT 41.9 % (39.0-50.0); HEMOGLOBIN 14.3 g/dl (14.0-18.0); IMMATURE GRANULOCYTES 0.3 % (0.0-5.0); MEAN CORPUSCULAR HGB CONC 34.1 g/dL CAL (32.0-36.0); NEUT# 5.48 thou/uL (1.82-7.42); RED BLOOD COUNT 4.76 mill/uL (4.70-6.10); RED CELL DISTRI WIDTH 12.5 % (11.5-15.5)
[2019-08-15 15:33] LABS: ALBUMIN 3.6 g/dL (3.2-5.0); ALKALINE PHOSPHATASE 67 u/l (38-126); ANION GAP 11 (6-22 (CALC)); BILIRUBIN, TOTAL 0.7 mg/dL (0.0-1.4); BUN 12 mg/dL (9-20); BUN/CREATININE RATIO 15 (12-20 (CALC)); CARBON DIOXIDE 25 mmol/l (22-30); CHLORIDE 99 mmol/l (95-108); CREATININE 0.8 mg/dL (0.7-1.3); GFR > 60 ML/MIN (>=60 (CALC)); GFR FOR AFR.AMER. > 60 ML/MIN (>=60 (CALC)); POTASSIUM 3.7 mmol/l (3.5-5.1); SGOT/AST 58 u/l (17-59); SODIUM 132 mmol/l (137-146); TOTAL PROTEIN 6.7 g/dL (6.3-8.2)
--- NOTE | 2019-08-15 15:57 | NUR ---
PT RESTING NO FURTHER EPISODES OF DIAPHORESIS OR HYPOTENSION, VS STABLE, WILL CONTINUE TO MONITOR
[2019-08-15] MEDS ORDERED: PREVACID30 M1 PO (16:47)
--- NOTE | 2019-08-15 17:10 | NUR ---
PT RESTING NO CHANGES, PT AMBULATED TO BATHROOM, URINE SPECIMEN SENT NO COMPLAINTS OFFERED AWARE OF DELAYED ADMISSION, REMAINS AT BEDSIDE
--- NOTE | 2019-08-15 18:20 | NUR ---
PT RESTING AWARE OF CONTINUED DELAYED ADMISSION BUT THAT SHOUDL HAPPEN WITHIN 1-2 HRS, VERBALIZES UNDERSTANDING.
--- NOTE | 2019-08-15 18:54 | NUR ---
RECEIVED HAND OFF REPORT FROM VARUN VENTURA. PATIENT AWAITING INPATIENT BED.
[2019-08-15 21:25] VITALS: BP 139/76
--- NOTE | 2019-08-15 21:25 | NUR ---
HAND OFF REPORT GIVEN TO RAQUEL, PATIENT TO INPATIENT ROOM 282.
--- NOTE | 2019-08-15 21:25 | NUR ---
PT ARRIVED TO THE MED SURG UNIT VIA STRETCHER ACCOMPANIED BY ED NURSE. PT SELF AMBULATED TO BED FROM STRETCHER. V/S ASSESSED, PT ORIENTED TO ROOM, CALL SYSTEM, LIGHTS BED AND TV. URINAL AT BEDSIDE, BUT PT INSTRUCTED TO CALL PRIOR TO AMBULATING IF HE NEEDS TO GET UP DUE TO REPORTED DIZZY SPELL PRIOR TO ARRIVING TO HOSPITAL. PT VERBALIZED UNDERSTANDING. NO DIRECTOR LIFE INSURANCE NEEDED. PT BROUGHT W/IVF BEING BOLUS'D, FINISHING THIS BOLUS AT THIS TIME.
[2019-08-16] VITALS (7 sets, daily range): BP systolic 126–147; BP diastolic 73–91
--- NOTE | 2019-08-16 05:59 | NUR ---
BLOOD DRAWN FOR LABS. PT TOLERATED WELL.
[2019-08-16 06:05] LABS: CHOLESTEROL HDL RATIO 5.5 (<4.4 (CALC))
--- NOTE | 2019-08-16 09:00 | NUR ---
PT SEEN AT REST IN THE BED, ALERT AND ORIENTED X 3. LUNGS CLEAR, RA. NO REPORT OF DIZZINESS, NO NEURO DEFICITS. IVF INFUSING NORMALLY.
--- NOTE | 2019-08-16 13:53 | NUR ---
PT CONTINUES BEFORE, DOES HAVE HEADACHE THAT WILL ADDRESS SOON. NO CHANGE IN STATUS, RESTS IN THE BED IN NO ACUTE DISTRESS.
--- NOTE | 2019-08-16 20:15 | NUR ---
PT. WATCHING TV. NO RESP. DISTRESS NOTED. ASSESSMENT COMPLETED. IV TO RFA APPEARS SWOLLEN AND IV SITE REMOVED WITH CATHETER TIP INTACT; PT. DENIES PAIN TO SITE. NEW IV STARTED TO LFA X1 ATTEMPT. REPORTS BM EARLIER TODAY. ENCURAGED TO CALL FOR ANY NEEDS.
--- NOTE | 2019-08-17 | NUR ---
PT. HAS TEMP OF 100.9 AND MEDICATED WITH ORDERED PRN TYLENOL, WILL REASSESS. DENIES NEEDS. CALL LIGHT IS IN REACH.
--- NOTE | 2019-08-17 03:45 | NUR ---
VSS. NO DISTRESS NOTED. AM LABS DRAWN. PT. DENIES NEEDS/PAIN. ENCOURAGED TO CALL FOR ANY NEEDS. CALL LIGHT IS IN REACH. WILL CONTINUE TO MONITOR.
[2019-08-17 04:00] VITALS: BP 137/85
[2019-08-17 04:59] LABS: HEMATOCRIT 39.5 % (39.0-50.0); HEMOGLOBIN 13.5 g/dl (14.0-18.0); IMMATURE GRANULOCYTES 0.5 % (0.0-5.0); MEAN CELL VOLUME 87.4 fL CALC (80.0-100.0); MEAN CORPUSCULAR HGB 29.9 pG CALC (26.0-32.0); MEAN CORPUSCULAR HGB CONC 34.2 g/dL CAL (32.0-36.0); NEUT# 4.18 thou/uL (1.82-7.42); RED BLOOD COUNT 4.52 mill/uL (4.70-6.10); RED CELL DISTRI WIDTH 12.5 % (11.5-15.5)
[2019-08-17 05:14] LABS: ALBUMIN 3.3 g/dL (3.2-5.0); ALKALINE PHOSPHATASE 54 u/l (38-126); ANION GAP 11 (6-22 (CALC)); BILIRUBIN, TOTAL 0.8 mg/dL (0.0-1.4); BUN 11 mg/dL (9-20); BUN/CREATININE RATIO 17 (12-20 (CALC)); C-REACTIVE PROTEIN 3.4 mg/dL (0-0.9); CARBON DIOXIDE 22 mmol/l (22-30); CHLORIDE 103 mmol/l (95-108); CREATININE 0.6 mg/dL (0.7-1.3); GFR > 60 ML/MIN (>=60 (CALC)); GFR FOR AFR.AMER. > 60 ML/MIN (>=60 (CALC)); POTASSIUM 3.7 mmol/l (3.5-5.1); SGOT/AST 49 u/l (17-59); SODIUM 133 mmol/l (137-146); TOTAL PROTEIN 6.3 g/dL (6.3-8.2)
[2019-08-17 08:00] VITALS: BP 138/97
[2019-08-17 11:34] VITALS: BP 142/79
--- NOTE | 2019-08-17 13:00 | NUR ---
PT SEEM BY DR ZHU TODAY, NO DISTRESS NOTED. PT'S CALLED SHORTLY THEREAFTER AND SHE WAS PROVIDED UPDATE.
[2019-08-17 15:28] VITALS: BP 138/72
--- NOTE | 2019-08-17 16:46 | NUR ---
PT REMAINS BEFORE, NO CHANGE IN STATUS. NO COMPLAINTS OF DIZZINESS.
[2019-08-17 18:55] VITALS: BP 151/84
--- NOTE | 2019-08-17 19:50 | NUR ---
ASSESSMENT COMPLETED. DENIES NEEDS/PAIN. IV SITE PATENT AND ORDERED IVF INFUSING WELL. SCHED MED GIVEN AND NEW BAG OF ORDERED IVF HUNG. ENCOURAGED TO CALL FOR ANY NEEDS. VOICES NO CONCERNS. CALL LIGHT IS IN REACH.
--- NOTE | 2019-08-17 23:10 | NUR ---
PT. RESTING IN BED WITH NO DISTRESS NOTED; DENIES NEEDS/PAIN. ENCOURAGED TO CALL FOR ANY NEEDS. CALL LIGHT IS IN REACH. WILL CONTINUE TO MONITOR.
[2019-08-17 23:30] VITALS: BP 134/75
[2019-08-18 03:20] VITALS: BP 132/78
--- NOTE | 2019-08-18 03:20 | NUR ---
VSS. NO DISTRESS NOTED; AM LABS OBTAINED; ENCOURAGED TO CALL FOR ANY NEEDS.
[2019-08-18 04:26] LABS: HEMOGLOBIN 13.5 g/dl (14.0-18.0); IMMATURE GRANULOCYTES 0.4 % (0.0-5.0); MEAN CELL VOLUME 86.7 fL CALC (80.0-100.0); MEAN CORPUSCULAR HGB CONC 34.6 g/dL CAL (32.0-36.0); NEUT# 4.83 thou/uL (1.82-7.42); RED BLOOD COUNT 4.5 mill/uL (4.70-6.10); RED CELL DISTRI WIDTH 12.3 % (11.5-15.5)
[2019-08-18 04:36] LABS: ALBUMIN 3.2 g/dL (3.2-5.0); ALKALINE PHOSPHATASE 55 u/l (38-126); ANION GAP 11 (6-22 (CALC)); BILIRUBIN, TOTAL 0.7 mg/dL (0.0-1.4); BUN 9 mg/dL (9-20); BUN/CREATININE RATIO 13 (12-20 (CALC)); C-REACTIVE PROTEIN 3.1 mg/dL (0-0.9); CARBON DIOXIDE 23 mmol/l (22-30); CHLORIDE 104 mmol/l (95-108); CREATININE 0.7 mg/dL (0.7-1.3); GFR > 60 ML/MIN (>=60 (CALC)); GFR FOR AFR.AMER. > 60 ML/MIN (>=60 (CALC)); POTASSIUM 3.7 mmol/l (3.5-5.1); SGOT/AST 46 u/l (17-59); SODIUM 133 mmol/l (137-146); TOTAL PROTEIN 6.2 g/dL (6.3-8.2)
--- NOTE | 2019-08-18 06:53 | NUR ---
NOTIFIED DR. ZHU OF POSITIVE COVID SWAB RESULT.
[2019-08-18 08:00] VITALS: BP 148/82
--- NOTE | 2019-08-18 09:00 | NUR ---
PT AWAKE, ALERT, ORIENTED X 3, APPEARS COMFORTABLE. LUNGS CLEAR, RA. PT AMBULATORY IN ROOM DESIRED. JAYNE UPDATED BY PHONE.
[2019-08-18 12:28] VITALS: BP 144/83
[2019-08-18] MEDS ORDERED: KEFLEX500 MG PO (13:13)
--- NOTE | 2019-08-18 14:00 | NUR ---
PT HAS BEEN DISCHARGED TO HOME THIS AFTERNOON. DR ZHU ASKED THAT PT BE WALKED AROUND THE UNIT FOR SEVERAL MINUTES TO CHECK HIS OXYGEN SATURATION LEVEL. HE STARTED AT 98% AND WENT DOWN TO ONLY 94% DURING AMBULATION. PT DID NOT FEEL SHORTNESS OF BREATH, NOR LIGHTHEADEDNESS. PT VERBALIZED UNDERSTANDING OF DC INSTRUCTIONS, WAS TAKEN TO LOBBY TO WAIT FOR HIS . PT WORE MASK AFTER LEAVING ROOM.
--- NOTE | 2019-08-19 10:43 | NUR ---
Notified patient of +Covid results. ADvised patient to continue with quarantine until [facility] contacts him with further instructions. Patient denies symptoms. Patient verbalized understanding.
== END 2019-08-18 14:00 | disposition home or self-care (01) | DRG 179 ==
LOC: ED 11:55 → ED-I 16:10 → ED 16:21 → ED-I 16:22 → MS2 20:55
PROVIDERS: Family Medicine; Nurse Practitioner Family; ADMIT Internal Medicine; ATTEND Internal Medicine
DX: U07.1 COVID-19 (principal); J02.0 Streptococcal pharyngitis; I10 Essential (primary) hypertension; K21.9 Gastro-esophageal reflux disease without esophagitis; Z86.19 Personal history of other infectious and parasitic diseases
CPT/HCPCS: G0378; J1650